=== PATIENT | male | born 1945 | race Caucasian/White ===

== ENCOUNTER 2023-04-08 09:04 | Observation (INO) | payer OTHER ==
[~2023-04-08] VITALS: Ht 175.3 cm; Wt 102.5 kg
[~2023-04-08 09:04] MED LIST: AMLO5 PO; ATOR40TA PO; BACL20 PO; Carvedilol12.5 MG PO; HYDCHL25 PO; LAVAP17G PO; LEVSOD100 PO; LISI20 PO; MOMENI; Norco 5-325 Ta1 EACH PO; POTCHL10ER PO
[2023-04-08 09:25] LABS: BASOPHILS ABSOLUTE AUTO 0.04 K/mm3 (0.00-0.23); BASOPHILS PERCENT AUTO 0 % (0-2); EOSINOPHILS ABSOLUTE AUTO 0.29 K/mm3 (0.00-0.68); EOSINOPHILS PERCENT AUTO 3 % (0-6); Hematocrit 41.2 % (37.0-53.0); Hemoglobin 13.9 g/dL (13.5-17.5); IMMATURE GRAN ABSOLUTE AUTO 0.02 K/mm3 (0.00-0.10); IMMATURE GRAN PERCENT AUTO 0 % (0-1); LYMPHOCYTES ABSOLUTE AUTO 1.75 K/mm3 (0.84-5.20); LYMPHOCYTES PERCENT AUTO 17 % (21-46); MONOCYTES ABSOLUTE AUTO 1.21 K/mm3 (0.16-1.47); MONOCYTES PERCENT AUTO 12 % (4-13); Mean Corpuscular HGB Conc 33.7 g/dL (31.5-36.5); Mean Corpuscular Volume 89 fL (80-100); Mean Platelet Volume 9.9 fL (9.1-12.4); NEUTROPHILS ABSOLUTE AUTO 6.84 K/mm3 (1.96-9.15); NEUTROPHILS PERCENT AUTO 67 % (41-73); Platelet Count 234 K/mm3 (150-400); RDW Coefficient Variation 14.3 % (11.7-14.2); RDW Standard Deviation 46.2 fL (35.1-46.3); Red Blood Cell Count 4.63 M/mm3 (4.30-5.90); White Blood Cell Count 10.15 K/mm3 (4.00-11.30)
[2023-04-08 09:46] LABS: Albumin, Blood 3.7 g/dL (3.4-5.0); Albumin/Globulin Ratio 1.1 (0.8-1.8); Bun/Creatinine Ratio 15.6 (12.0-20.0); Calcium, Blood 8.9 mg/dL (8.5-10.1); Creatinine, Blood 0.96 mg/dL (0.60-1.20); Globulin, Blood 3.5 g/dL (2.2-4.0); Total Protein, Blood 7.2 g/dL (6.4-8.2)
[2023-04-08 10:28] LABS: Influenza A, PCR NEGATIVE (NEGATIVE); Influenza B, PCR NEGATIVE (NEGATIVE); Resp Syncytial Virus, PCR NEGATIVE (NEGATIVE); SARS-Cov-2 (COVID-19) PCR, MMC NEGATIVE (NEGATIVE)
[2023-04-08] MEDS ORDERED: PREG150 PO (10:41)
[2023-04-08] MEDS ORDERED: TRAM50 PO (10:42)
[2023-04-08] MEDS ORDERED: PANT40 PO (10:42)
[2023-04-08 14:28] VITALS: BP 159/88
[2023-04-08 14:30] VITALS: BP 149/85
[2023-04-08 16:05] VITALS: BP 140/80
--- NOTE | 2023-04-08 17:37 | NUR ---
PT ARRIVED IN THE UNIT VIA GURNEY PT ABLE TO STAND AND AMBULATE TO TRANSFER TO PCU BED. PT ALERT AND ORIENTED X3 ABLE TO MAKE NEEDS KNOWN, [place] HAS HEARING AID IN PLACE. PT IS HERE FOR CHEST PAIN, PT DENIES ANY CHEST PAIN UPON ARRIVAL DOES HAVE SOB WITH EXERTION AND LAYING FLAT IN BED, LUNGS WITH CRACKLES ON THE BASES. PT C/O BACK PAIN 03/25 FROM LAYING ON BACK MEDICATED WITH TYLENOL. VITALS SR PVC'S BBB 80'S, SBP 140, SATS ABOVE 90% ON RA, AFEBRILE. PT FOR ONE DAY PROTOCOL STRESS TEST IN AM, NPO AT MIDNIGHT AND NO CAFFERINE AFTER 7PM, PT WAS INSTRUCTED AND EDUCATED PT VERBALIZED UNDERSTANDING. PT ALSO STARTED ON LASIX PO. AWAITING FOR ECHO RESULTS. PT HAS BEEN AMBULATING TO THE BATHROOM SBA NO ISSUES. WILL CONTINUE TO MONITOR UNTIL END OF SHIFT
[2023-04-08 20:28] VITALS: BP 128/74
[2023-04-08 23:07] VITALS: BP 105/59
[2023-04-09 03:41] VITALS: BP 125/64
[2023-04-09 03:55] LABS: BASOPHILS ABSOLUTE AUTO 0.04 K/mm3 (0.00-0.23); BASOPHILS PERCENT AUTO 1 % (0-2); EOSINOPHILS ABSOLUTE AUTO 0.25 K/mm3 (0.00-0.68); EOSINOPHILS PERCENT AUTO 3 % (0-6); Hematocrit 38.9 % (37.0-53.0); Hemoglobin 13.1 g/dL (13.5-17.5); IMMATURE GRAN ABSOLUTE AUTO 0.01 K/mm3 (0.00-0.10); IMMATURE GRAN PERCENT AUTO 0 % (0-1); LYMPHOCYTES ABSOLUTE AUTO 2.04 K/mm3 (0.84-5.20); LYMPHOCYTES PERCENT AUTO 25 % (21-46); MONOCYTES ABSOLUTE AUTO 0.88 K/mm3 (0.16-1.47); MONOCYTES PERCENT AUTO 11 % (4-13); Mean Corpuscular HGB 29.4 pg (26.0-34.0); Mean Corpuscular HGB Conc 33.7 g/dL (31.5-36.5); Mean Corpuscular Volume 87 fL (80-100); Mean Platelet Volume 9.9 fL (9.1-12.4); NEUTROPHILS ABSOLUTE AUTO 4.96 K/mm3 (1.96-9.15); NEUTROPHILS PERCENT AUTO 61 % (41-73); Platelet Count 211 K/mm3 (150-400); RDW Coefficient Variation 14.1 % (11.7-14.2); RDW Standard Deviation 45.1 fL (35.1-46.3); Red Blood Cell Count 4.45 M/mm3 (4.30-5.90); White Blood Cell Count 8.18 K/mm3 (4.00-11.30)
[2023-04-09 04:12] LABS: Bun/Creatinine Ratio 17.1 (12.0-20.0); Calcium, Blood 8.4 mg/dL (8.5-10.1); Creatinine, Blood 0.82 mg/dL (0.60-1.20); Potassium, Blood 3.3 mmol/L (3.5-5.5)
--- NOTE | 2023-04-09 05:49 | NUR ---
SHIFT SUMMARY PATIENT ALERT AND ORIENTED X4. MEDICATED PER EMAR FOR BACK PAIN. HAD NO COMPLAINTS OF SHORTNESS OF BREATH, SPO2 90'S ON ROOM AIR. VITAL SIGNS STABLE. NO ACUTE ISSUES NOTED OVERNIGHT. PATIENT ASSESSED FOR IGNITION RISK AND EDUCATED ON FIRE SAFETY IN THE HOSPITAL. WILL CONTINUE TO MONITOR. CALL LIGHT WITHIN REACH.
[2023-04-09 06:22] LABS: Magnesium, Blood 2.3 mg/dL (1.6-2.4)
[2023-04-09 08:00] VITALS: BP 129/73
[2023-04-09] MEDS ORDERED: LISI20 PO (14:53)
[2023-04-09] MEDS ORDERED: VITAMIN E180 MG PO (14:56)
[2023-04-09] MEDS ORDERED: Hair, Skin & N1 EACH PO (14:56)
[2023-04-09] MEDS ORDERED: DERMACINRX FOL1 EAC2 PO (14:57)
[2023-04-09 16:29] VITALS: BP 148/82
--- NOTE | 2023-04-09 18:11 | NUR ---
SHIFT SUMMARY PATIENT HAD STRESS TEST COMPLETED TODAY. UP TO CHAIR DURING THE DAY AND AMBULATED TO BATHROOM INDEPENDENTLY. NO ACUTE EVENTS. MEDICATED WITH TYLENOL ONCE PER EMAR FOR BACK PAIN.
[2023-04-09 20:59] VITALS: BP 132/101
[2023-04-09 23:49] VITALS: BP 123/75
[2023-04-10 03:54] VITALS: BP 126/83
[2023-04-10 04:06] LABS: Hematocrit 40.4 % (37.0-53.0); Hemoglobin 13.7 g/dL (13.5-17.5); Mean Corpuscular HGB 29.6 pg (26.0-34.0); Mean Corpuscular HGB Conc 33.9 g/dL (31.5-36.5); Mean Corpuscular Volume 87 fL (80-100); Mean Platelet Volume 9.8 fL (9.1-12.4); Platelet Count 221 K/mm3 (150-400); RDW Coefficient Variation 13.9 % (11.7-14.2); RDW Standard Deviation 44.3 fL (35.1-46.3); Red Blood Cell Count 4.63 M/mm3 (4.30-5.90); White Blood Cell Count 6.34 K/mm3 (4.00-11.30)
[2023-04-10 04:22] LABS: Bun/Creatinine Ratio 21.2 (12.0-20.0); Calcium, Blood 8.3 mg/dL (8.5-10.1); Creatinine, Blood 0.71 mg/dL (0.60-1.20); Potassium, Blood 3.5 mmol/L (3.5-5.5)
--- NOTE | 2023-04-10 06:08 | NUR ---
SHIFT SUMMARY PATIENT ALERT AND ORIENTED X4, INDEPENDENT IN ROOM. PATIENT MEDICATED PER EMAR FOR BACK PAIN. SPO2 >90% ON ROOM AIR. NO COMPLAINTS OF CHEST PAIN OR SHORTNESS OF BREATH. VITAL SIGNS STABLE, SINUS RHYTHM WITH PVC'S ON TELE. NO ACUTE ISSUES NOTED OVERNIGHT. PATIENT ASSESSED FOR IGNITION RISK AND EDUCATED ON FIRE SAFETY IN THE HOSPITAL. WILL CONTINUE TO MONITOR. CALL LIGHT WITHIN REACH.
[2023-04-10 08:00] VITALS: BP 152/88
--- NOTE | 2023-04-10 09:50 | NUR ---
IGNITION RISK ASSESSMENT PT ASSESSED FOR SMOKING AND OTHER IGINTION RISK DEVICES, NONE REPORTED. PT REMINDED THAT [facility] IS A SMOKE FREE FACILITY AND THAT ANY VISITORS NEED TO LEAVE IGNITION RISK DEVICES IN THEIR VEHICLE. PT AGREED.
[2023-04-10] MEDS ORDERED: ASPI81CH PO (10:59)
[2023-04-10] MEDS ORDERED: FURO40 PO (11:00)
--- NOTE | 2023-04-10 11:07 | NUR ---
PT SISTER IN-LAW UPDATED PER PT REQUEST.
[2023-04-10 11:38] VITALS: BP 128/79
--- NOTE | 2023-04-10 13:40 | NUR ---
REPORT GIVEN TO DIANA DEVI. DIANA TO ASSUME CARE.
--- NOTE | 2023-04-10 14:04 | NUR ---
Spiritual care visit conducted. Patient was lying in bed and alert. He told me about his divorce and then his move to [place] 10 yrs ago to be near his brother. His brother 5yrs ago and so his [place] are the only family in the area. 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 He then shares about his recent heart event and the plans to treat the issues with medication. He explains about his [employer] [place] [facility] and how dispite the problems he saw in the rastafari he has maintained a practicing Church. 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 I normalize his experience, reinforce helpful attitudes and provide therapeutic listening and pryaer. Patient responded well and voiced that he was very encourged by the spiritual care visit.
--- NOTE | 2023-04-10 14:36 | NUR ---
ASSUMED CARE AT 1300 ALERT, ORIENTED, [place]. INDEPENDENT WITH CANE IN ROOM. ROOM AIR, TELE NSR, PVC'S, BBB. IV DC'D WNL. DISCHARGE EDUCATION GIVEN ON NEW MEDS AND FOLLOW UP WITH PCP. PATIENT DRESSED HIMSELF AND LEFT UNIT AT 1430 VIA WHEELCHAIR FOR HOME WITH SISTER IN LAW.
== END 2023-04-10 14:29 | disposition home or self-care (01) ==
LOC: ER 09:04 → PCU 09:05
PROVIDERS: Emergency Medicine; Family Medicine; Student in an Organized Health Care Education/Training Program; ADMIT Hospitalist
DX: R07.9 Chest pain, unspecified (principal); I44.7 Left bundle-branch block, unspecified; I50.9 Heart failure, unspecified; E03.9 Hypothyroidism, unspecified; I11.0 Hypertensive heart disease with heart failure; K21.9 Gastro-esophageal reflux disease without esophagitis; K59.00 Constipation, unspecified; Z66 Do not resuscitate; Z20.822 Contact with and (suspected) exposure to COVID-19
CPT/HCPCS: 0241U; 36415; 71045; 78452; 80048; 80053; 83690; 83735; 83880; 84484; 85025; 85027; 93005; 93010; 93017; 93306; 96372; 99285-25; A9270; A9500; G0378; J1650; J2785

== ENCOUNTER 2023-07-02 11:10 | Inpatient (IN) | payer OTHER ==
[~2023-07-02] VITALS: Ht 175.3 cm; Wt 109.4 kg
[~2023-07-02 11:10] MED LIST changes: +ASPI81CH PO; +DERMACINRX FOL1 EAC2 PO; +FURO40 PO; +Hair, Skin & N1 EACH PO; +PANT40 PO; +PREG150 PO; +TRAM50 PO; +VITAMIN E180 MG PO
[2023-07-02 12:15] LABS: BASOPHILS ABSOLUTE AUTO 0.04 K/mm3 (0.00-0.23); BASOPHILS PERCENT AUTO 1 % (0-2); EOSINOPHILS ABSOLUTE AUTO 0.41 K/mm3 (0.00-0.68); EOSINOPHILS PERCENT AUTO 5 % (0-6); Hematocrit 40.8 % (37.0-53.0); Hemoglobin 13.4 g/dL (13.5-17.5); IMMATURE GRAN ABSOLUTE AUTO 0.01 K/mm3 (0.00-0.10); IMMATURE GRAN PERCENT AUTO 0 % (0-1); LYMPHOCYTES ABSOLUTE AUTO 1.93 K/mm3 (0.84-5.20); LYMPHOCYTES PERCENT AUTO 25 % (21-46); MONOCYTES PERCENT AUTO 8 % (4-13); Mean Corpuscular HGB 29.7 pg (26.0-34.0); Mean Corpuscular HGB Conc 32.8 g/dL (31.5-36.5); Mean Corpuscular Volume 91 fL (80-100); Mean Platelet Volume 10.1 fL (9.1-12.4); NEUTROPHILS ABSOLUTE AUTO 4.88 K/mm3 (1.96-9.15); NEUTROPHILS PERCENT AUTO 62 % (41-73); Platelet Count 243 K/mm3 (150-400); RDW Coefficient Variation 14.8 % (11.7-14.2); RDW Standard Deviation 49.5 fL (35.1-46.3); Red Blood Cell Count 4.51 M/mm3 (4.30-5.90); White Blood Cell Count 7.87 K/mm3 (4.00-11.30)
[2023-07-02 12:35] LABS: Albumin/Globulin Ratio 0.5 (0.8-1.8); Bilirubin, Total 0.3 mg/dL (0.1-1.0); Bun/Creatinine Ratio 24.8 (12.0-20.0); Calcium, Blood 7.9 mg/dL (8.5-10.1); Creatinine, Blood 1.29 mg/dL (0.60-1.20); Globulin, Blood 3.6 g/dL (2.2-4.0); Potassium, Blood 4.8 mmol/L (3.5-5.5); Total Protein, Blood 5.4 g/dL (6.4-8.2)
[2023-07-02 12:39] LABS: Albumin, Blood 1.8 g/dL (3.4-5.0)
[2023-07-02] MEDS ORDERED: SPIR25 PO (16:01)
[2023-07-02] MEDS ORDERED: ALBU90OI INH (16:02)
[2023-07-02] MEDS ORDERED: PANT40 PO (16:03)
[2023-07-02] MEDS ORDERED: ENTRESTO 49 MG1 EACH PO (16:04)
[2023-07-02] MEDS ORDERED: EPIPEN0.3 MG/0.3 IM (16:06)
[2023-07-02 16:38] VITALS: BP 140/86
--- NOTE | 2023-07-02 18:50 | NUR ---
PT UPDATE TELE NOTIFIED JOHN DEVI OF [facility]. PT ASYMPTOMATIC. NOTIFIFED , PER EKG PERFORMED. NOTIFIED OF RESULTS. NO INTERVENTIONS NEEDED AT THIS TIME.
[2023-07-02 19:10] VITALS: BP 141/70
[2023-07-03 03:27] VITALS: BP 123/79
[2023-07-03 04:56] LABS: BASOPHILS ABSOLUTE AUTO 0.04 K/mm3 (0.00-0.23); BASOPHILS PERCENT AUTO 1 % (0-2); EOSINOPHILS ABSOLUTE AUTO 0.22 K/mm3 (0.00-0.68); EOSINOPHILS PERCENT AUTO 3 % (0-6); Hemoglobin 13.1 g/dL (13.5-17.5); IMMATURE GRAN ABSOLUTE AUTO 0.02 K/mm3 (0.00-0.10); IMMATURE GRAN PERCENT AUTO 0 % (0-1); LYMPHOCYTES ABSOLUTE AUTO 1.55 K/mm3 (0.84-5.20); LYMPHOCYTES PERCENT AUTO 19 % (21-46); MONOCYTES ABSOLUTE AUTO 0.62 K/mm3 (0.16-1.47); MONOCYTES PERCENT AUTO 8 % (4-13); Mean Corpuscular HGB 30.6 pg (26.0-34.0); Mean Corpuscular HGB Conc 34.5 g/dL (31.5-36.5); Mean Corpuscular Volume 89 fL (80-100); Mean Platelet Volume 10.3 fL (9.1-12.4); NEUTROPHILS PERCENT AUTO 70 % (41-73); Platelet Count 245 K/mm3 (150-400); RDW Coefficient Variation 14.8 % (11.7-14.2); RDW Standard Deviation 47.8 fL (35.1-46.3); Red Blood Cell Count 4.28 M/mm3 (4.30-5.90); White Blood Cell Count 8.25 K/mm3 (4.00-11.30)
[2023-07-03 05:29] LABS: Bun/Creatinine Ratio 24.8 (12.0-20.0); Calcium, Blood 8.1 mg/dL (8.5-10.1); Creatinine, Blood 1.41 mg/dL (0.60-1.20); Potassium, Blood 4.3 mmol/L (3.5-5.5)
--- NOTE | 2023-07-03 06:15 | NUR ---
Shift Summary Upon arrival I was told in report pt was having ST changes on the heart monitor but the EKG was unchanged and the is aware. I recieved a call early in the shift that pt was having more ST change alerts than previously in the day. No change in pt condition, no c/o chest pain or pressure, no light headedness or dizzyness. Pt did c/o of lower back pain and requested his home medication Tramadol, called hospitalist who put in the order. Pt slept well t/o the night, woke up this AM with a headache, rcvind PRN tylenol. AOx4, moves independently in the room with his cane, very [place] even with hearing aids in.
[2023-07-03 08:01] VITALS: BP 140/80
[2023-07-03 15:25] VITALS: BP 149/80
--- NOTE | 2023-07-03 17:30 | NUR ---
SHIFT SUMMARY PATIENT CONTINUES TO HAVE SOB WITH ACTIVITY. PATIENT CONTINUES TO DISCUSS THAT HE NEEDS A 3 LEAD PACEMAKER AND CONCERNED HOW THAT IS GOING TO HAPPEN. IV DC'D AND NEW ONE PLACED IN L AC. PATIENT CONTINUES TO BE GIVEN IV DIURETICS ALONG WITH PO. PATIENT MEDICATED FOR PAIN THROUGHOUT THE DAY. PATIENT ALERT, INTERACTIVE AND ABLE TO AMBULATE IN THE ROOM
[2023-07-03 20:59] VITALS: BP 137/72
[2023-07-04 04:48] VITALS: BP 129/66
--- NOTE | 2023-07-04 04:58 | NUR ---
SHIFT SUMMARY; NO ACUTE CHANGES OVER NIGHT. THE PT IS AXO X4 AND INDEPENDENT IN THE ROOM. THE PT HAS BEEN ASLEEP THE ENTIRETY OF THE NIGHT. TELE IS IN PLACE, SINUS IN THE 70'S W/ A BBB. THE PT DENIES ANY SOB, CHEST PAIN/PRESSURE OR N/V. CURRENTLY THE PT IS SLEEPING IN BED WITH THE BED IN THE LOWEST POSITION AND THE CALL LIGHT AT BEDSIDE. FIRE ROUNDS COMPLETED.
[2023-07-04 05:57] LABS: Bun/Creatinine Ratio 25.2 (12.0-20.0); Calcium, Blood 7.8 mg/dL (8.5-10.1); Creatinine, Blood 1.55 mg/dL (0.60-1.20); Potassium, Blood 3.9 mmol/L (3.5-5.5)
[2023-07-04 07:31] VITALS: BP 136/72
[2023-07-04 16:13] VITALS: BP 126/73
--- NOTE | 2023-07-04 16:51 | NUR ---
SHIFT SUMMARY PATIENT CONTINUES TO BE DIURESED. PATIENT TO SEE CARDIOLOGY OUTPATIENT RELATED TO 3 LEAD PACEMAKER. PATIENT ALERT, ORIENTED, [place], AND INDEPENDENT IN THE ROOM. PATIENT HAVING ISSUES WITH BACK SPASMS. PATIENT HAS HX OF BACK SURGERY. PATIENT GIVEN HEATING PAD TO HELP WITH SPASMS. PATIENT REPORTS IMPROVEMENT. CONTINUE TO PROVIDE EDUCATION RELATED TO DIET, FLUIDS AND DIURESIS.
[2023-07-04 20:04] VITALS: BP 121/66
[2023-07-05 04:15] VITALS: BP 130/78
--- NOTE | 2023-07-05 04:52 | NUR ---
SHIFT SUMMARY; NO ACUTE CHANGES OVERNIGHT. THE PT HAS BEEN SLEEPING IN BED FOR THE ENTIRETY OF THE NIGHT. THE PT IS AXO X4 AND INDEPENDENT IN THE ROOM. THE PT REQUESTED PRN PAIN MEDICATION THIS AM FOR BACK PAIN BUT HAS OTHERWISE DENIED ANY OTHER PAIN T/O THE NIGHT. THE PT ALSO DENIES ANY SOB, CHEST PAIN/PRESSURE AND OR N/V. CURRENTLY THE PT IS SLEEPING IN BED WITH THE BED IN THE LOWEST POSITION AND THE CALL LIGHT AT BEDSIDE. FIRE SAFETY ROUNDS COMPLETED.
[2023-07-05 05:19] LABS: Bun/Creatinine Ratio 31.9 (12.0-20.0); Calcium, Blood 7.9 mg/dL (8.5-10.1); Creatinine, Blood 1.35 mg/dL (0.60-1.20); Potassium, Blood 3.4 mmol/L (3.5-5.5)
[2023-07-05 07:54] VITALS: BP 143/66
[2023-07-05 14:43] VITALS: BP 118/82
--- NOTE | 2023-07-05 16:55 | NUR ---
SHIFT SUMMARY PATIENT CONTINUES TO BE DIURESED. CARDIOLOGY SPOKE TO PATIENT ABOUT PACEMAKER PLACEMENT. DR LICONA TO CONSULT FOR PLACEMENT. PATIENT CONTINUES TO HAVE LOWER BACK SPASMS. PATIENT MEDICATED WITH MUSCLE RELAXER WITH GOOD RESULTS. PATIENT CONTINUES TO BE INDEPENDENT IN THE ROOM. PATIENT VERY HARD OF HEARING EVEN WITH HEARING AIDS IN PLACE. DR LICONA CONSULTED AND STATED THAT PACEMAKER WILL BE EVALUATED AN OUTPATIENT. MULTIPLE STEPS TO BE COMPLETED PRIOR TO PACER PLACEMENT.
[2023-07-05 19:54] VITALS: BP 124/73
[2023-07-06 05:12] VITALS: BP 130/69
--- NOTE | 2023-07-06 05:32 | NUR ---
SHIFT SUMMARY OMA IS A&OX4, PLEASANT AND APPRECIATIVE. VERY [place], HAS BILATERAL HEARING AIDES. VSS, 1ST DEGREE BBB, HR 70'S-80'S, AFEBRILE, O2 SATS >90% ON RA. CONTINUES TO DIURESE. C/O PAIN IN HIS BACK, MANAGED WITH PRN TRAMADOL, TYLENOL AND ZANAFLEX. ALSO USES HEAT PAD. TOLERATES A HEART HEALTHY DIET. UP AD BRISA INDEPENDENTLY IN ROOM/BR, ADEQUATE UOP. NO BM THIS SHIFT. PATIENTS BED IN LOWEST POSITION, CANE IN REACH, CALLS APPROPRIATELY.
[2023-07-06 07:41] VITALS: BP 136/80
[2023-07-06 08:53] LABS: Albumin, Blood 1.6 g/dL (3.4-5.0); Anion Gap 6 mmol/L (6-16); Blood Urea Nitrogen 46 mg/dL (8-24); Bun/Creatinine Ratio 35.4 (12.0-20.0); CO2, Blood 32 mmol/L (21-32); Calcium, Blood 8.1 mg/dL (8.5-10.1); Chloride, Blood 100 mmol/L (98-108); Glomerular Filtration Rate 56 (60-); Glucose, Blood 92 mg/dL (70-99); Phosphorus, Blood 3.8 mg/dL (2.5-4.9); Potassium, Blood 3.2 mmol/L (3.5-5.5); Sodium, Blood 138 mmol/L (136-145)
[2023-07-06 15:14] VITALS: BP 129/65
--- NOTE | 2023-07-06 19:20 | NUR ---
SHIFT SUMMARY: NO ACUTE EVENTS. NO EVENTS ON TELEMETRY, SR BBB 1ST DEGREE HB PVC'S WITH RATE OF 60-70'S. C/O CHRONIC BACK PAIN; MEDICATED PER EMAR WITH ADEQUATE RELIEF. AMBULATED IN HALLWAY X 1, TOLERATED WELL. BLE ELEVATED ON PILLOWS AND FOOT OF BED ELEVATED ALL THE WAY UP. PHYSICAL THERAPY WORKED WITH PATIENT THIS MORNING.
[2023-07-06 20:17] VITALS: BP 121/80
[2023-07-07 02:18] VITALS: BP 137/77
--- NOTE | 2023-07-07 04:48 | NUR ---
SHIFT SUMMARY NOC PT A/O X 4. PLEASANT AND COOPERATIVE WITH CARE. DAILY WT AND STRICT I/O FOR DIURESING. NO ACUTE CHANGES TO REPORT. PT RECEIVED PAIN/MUSCLE RELAXER RX WITH BEDTIME MEDS. PT BLE ARE ELEVATED ON PILLOWS. PT ON TELE RUNNING SINUS RHYTHM @ 66 BPM. PT REPORTS ANXIETY AND HAS QUESTIONS ABOUT UPCOMING PROCESS FOR PACEMAKER PLACEMENT. PT HAS CONSULT WITH [employer] ON SATURDAY TO DISCUSS PLAN GOING FORWARD FOR PM PLACEMENT. PT IS CURRENTLY RESTING WITH BED IN LOWEST POSITION, AND CALL LIGHT WITHIN REACH.
[2023-07-07 07:24] VITALS: BP 139/82
[2023-07-07 08:11] LABS: Albumin, Blood 1.5 g/dL (3.4-5.0); Anion Gap 6 mmol/L (6-16); Blood Urea Nitrogen 49 mg/dL (8-24); Bun/Creatinine Ratio 39.8 (12.0-20.0); CO2, Blood 30 mmol/L (21-32); Calcium, Blood 7.8 mg/dL (8.5-10.1); Chloride, Blood 98 mmol/L (98-108); Creatinine, Blood 1.23 mg/dL (0.60-1.20); Glomerular Filtration Rate 59 (60-); Glucose, Blood 96 mg/dL (70-99); Phosphorus, Blood 3.6 mg/dL (2.5-4.9); Potassium, Blood 3.1 mmol/L (3.5-5.5); Sodium, Blood 134 mmol/L (136-145)
[2023-07-07 14:59] VITALS: BP 140/91
--- NOTE | 2023-07-07 18:55 | NUR ---
SHIFT SUMMARY: RECEIVED SECOND CALL FROM [facility] SHIFT WOOD WEB WEAVING MACHINE OPERATOR WHO STATED THAT PT'S HEART RHYTHM APPEARED TO HAVE CHANGES IN ST ELEVATION. INFORMED HER THAT PREVIOUS TECH HAD ALREADY REPORTED THIS. DR. ESTRADA HAD BEEN NOTIFIED AND 12 LEAD EKG DONE AND GIVEN TO HER FOR HER EVALUATION; NO NEW ORDERS PLACED. PT DENIES CHEST DISCOMFORT, SOB, DIZZINESS, NAUSEA. POTASSIUM REPLACED AND EXTRA BUMEX 2 MG DOSE GIVEN THIS AFTERNOON. BUE EDEMA APPEARS A BIT REDUCED. IS ELEVATING BLE WELL HIS CHRONIC BACK PAIN WILL ALLOW. MEDICATED FOR SAID PAIN PER EMAR. GOOD APPETITE.
[2023-07-07 19:49] VITALS: BP 123/70
[2023-07-08 04:15] VITALS: BP 125/77
[2023-07-08 05:22] LABS: Albumin, Blood 1.5 g/dL (3.4-5.0); Anion Gap 6 mmol/L (6-16); Blood Urea Nitrogen 48 mg/dL (8-24); Bun/Creatinine Ratio 39.3 (12.0-20.0); CO2, Blood 34 mmol/L (21-32); Calcium, Blood 7.8 mg/dL (8.5-10.1); Chloride, Blood 98 mmol/L (98-108); Creatinine, Blood 1.22 mg/dL (0.60-1.20); Glomerular Filtration Rate 60 (60-); Glucose, Blood 93 mg/dL (70-99); Magnesium, Blood 2.2 mg/dL (1.6-2.4); Phosphorus, Blood 3.6 mg/dL (2.5-4.9); Potassium, Blood 3.1 mmol/L (3.5-5.5); Sodium, Blood 138 mmol/L (136-145)
--- NOTE | 2023-07-08 05:33 | NUR ---
SHIFT SUMMARY NOC PT A/O X 4. PLEASANT AND COOPERATIVE WITH CARE. NO ACUTE CHANGES TO REPORT. PT HAD EXTRA DOSES OF BUMEX YESTERDAY AND AWAITING AM DAILY WT TO REEVALUATE INTERVENTION. PT GOT BEDTIME COMBO RX FOR PAIN/MUSCLE RELAXER AND SLEPT FOR MOST OF SHIFT. PT ON TELE RUNNING SINUS RHYTHM BBB @ 70 BPM. PT ELEVATING BLE ON PILLOWS DUE TO EDEMA, WHICH SEEMS TO HAVE DECREASED. PT IS CURRENTLY RESTING WITH BED IN LOWEST POSITION, AND CALL LIGHT WITHIN REACH.
[2023-07-08 07:40] VITALS: BP 146/81
[2023-07-08 16:00] VITALS: BP 132/85
--- NOTE | 2023-07-08 17:32 | NUR ---
NO ACUTE CHANGES AT THIS TIME. PT AOX4 AND HARD OF HEARING. PT INDEPENDENT IN ROOM WILL CONTINUE TO MONITOR.
[2023-07-08 20:03] VITALS: BP 130/89
[2023-07-09 04:37] VITALS: BP 138/75
--- NOTE | 2023-07-09 04:42 | NUR ---
SHIFT SUMMARY PT A&O X4, CALM AND COOPERATIVE WITH CARE. PT DIURESING. STRICT I&Os MAINTAINED AND FLUID RESTRICTION. TELEMETRY: SR W/PVC's @ 86. DENIES ANY CP OR PRESSURE AT THIS TIME. PT IS [place] BUT HAS HEARING AIDS. CONTINENT AND INDEPENDENT IN ROOM. CALLS APPROPRIATELY. BED KEPT IN LOWEST POSITION WITH CALL LIGHT WITHIN REACH. WILL CONTINUE TO MONITOR.
[2023-07-09 05:37] LABS: Albumin, Blood 1.5 g/dL (3.4-5.0); Anion Gap 5 mmol/L (6-16); Blood Urea Nitrogen 48 mg/dL (8-24); Bun/Creatinine Ratio 36.1 (12.0-20.0); CO2, Blood 34 mmol/L (21-32); Chloride, Blood 98 mmol/L (98-108); Creatinine, Blood 1.33 mg/dL (0.60-1.20); Glomerular Filtration Rate 54 (60-); Glucose, Blood 93 mg/dL (70-99); Phosphorus, Blood 3.5 mg/dL (2.5-4.9); Potassium, Blood 3.5 mmol/L (3.5-5.5); Sodium, Blood 137 mmol/L (136-145)
[2023-07-09 07:12] VITALS: BP 125/84
[2023-07-09] MEDS ORDERED: ENTRESTO 49 MG1 EAC2 PO (14:00)
[2023-07-09] MEDS ORDERED: METO5 PO (14:01)
[2023-07-09] MEDS ORDERED: MOME220I INH (14:02)
[2023-07-09] MEDS ORDERED: POTCHL20ER PO (14:03)
[2023-07-09] MEDS ORDERED: MIRALAX17 GM PO (14:03)
[2023-07-09] MEDS ORDERED: TIZA4 PO (14:04)
[2023-07-09] MEDS ORDERED: Bumetanide2 MG PO (14:05)
--- NOTE | 2023-07-09 15:04 | NUR ---
PT AOX4 AND COOPERATIVE OF CARE, DISCHARGE AT 1455. ALL PAPERWORK REVIEWED AND EDUCATIONAL MATERIAL SENT WITH PT. NO DISTRESS NOTED. FRIENDT TRANSPORT HOME. ALL PERSONAL BELONGING COLLECTED AND TAKEN WITH PT.
== END 2023-07-09 14:55 | disposition home or self-care (01) | DRG 280 ==
LOC: ER 11:10 → MEDS 14:40
PROVIDERS: Internal Medicine; Student in an Organized Health Care Education/Training Program; ADMIT Family Medicine
DX: I11.0 Hypertensive heart disease with heart failure (principal); I50.23 Acute on chronic systolic (congestive) heart failure; I21.A1 Myocardial infarction type 2; E87.1 Hypo-osmolality and hyponatremia; N17.9 Acute kidney failure, unspecified; I44.7 Left bundle-branch block, unspecified; E03.9 Hypothyroidism, unspecified; Z66 Do not resuscitate; E87.6 Hypokalemia; G89.29 Other chronic pain; E78.5 Hyperlipidemia, unspecified; K21.9 Gastro-esophageal reflux disease without esophagitis; I08.0 Rheumatic disorders of both mitral and aortic valves; R63.4 Abnormal weight loss; I25.10 Atherosclerotic heart disease of native coronary artery without angina pectoris; I44.1 Atrioventricular block, second degree; D64.9 Anemia, unspecified; E66.9 Obesity, unspecified; Z88.0 Allergy status to penicillin; Z91.038 Other insect allergy status; Z88.2 Allergy status to sulfonamides; Z68.37 Body mass index [BMI] 37.0-37.9, adult; Z88.5 Allergy status to narcotic agent; Z91.018 Allergy to other foods; Z79.899 Other long term (current) drug therapy; Z79.890 Hormone replacement therapy; Z79.891 Long term (current) use of opiate analgesic; Z79.51 Long term (current) use of inhaled steroids; Z79.82 Long term (current) use of aspirin; Z79.01 Long term (current) use of anticoagulants; Z60.2 Problems related to living alone
CPT/HCPCS: 36415; 71046; 80048; 80053; 80069; 83735; 83880; 84484; 85025; 93005; 93010; 94640; 94664; 94760; 97116; 97161; 97166; 97530; 99285-25; A9270; J1650; J2405

== ENCOUNTER 2023-07-24 08:58 | Day surgery (SDC) | payer OTHER ==
[2023-07-24] VITALS (10 sets, daily range): BP systolic 111–152; BP diastolic 56–110
[~2023-07-24] VITALS: Ht 175.3 cm; Wt 110.0 kg
[~2023-07-24 08:58] MED LIST changes: +ALBU90OI INH; +Bumetanide2 MG PO; +ENTRESTO 49 MG1 EAC2 PO; +ENTRESTO 49 MG1 EACH PO; +EPIPEN0.3 MG/0.3 IM; +METO5 PO; +MIRALAX17 GM PO; +MOME220I INH; +POTCHL20ER PO; +SPIR25 PO; +TIZA4 PO
[2023-07-24] MEDS ORDERED: ALDACTONE25 MG PO (09:33)
--- NOTE | 2023-07-24 13:00 | NUR ---
PT DRESSES SELF WITHOUT DIFF. VSS. NADN. PT TR BAND REMOVED FROM R RADIAL. NO BLEEDING OR HEMATOMA NOTED. SPLINT IN PLACE. PT VERBALIZES UNDERSTANDING WRITTEN AND VERBAL INSTRUCTIONS. DENIES QUESTIONS. PT IV DC'D. CATH INTACT. PRESSURE DSG APPLIED. PT DC TO HOME VIA WC BY FRIEND.
== END 2023-07-24 13:05 | disposition home or self-care (01) ==
LOC: MHTC 08:58
DX: I42.8 Other cardiomyopathies (principal); I11.0 Hypertensive heart disease with heart failure; I50.20 Unspecified systolic (congestive) heart failure; I25.10 Atherosclerotic heart disease of native coronary artery without angina pectoris; I25.2 Old myocardial infarction; I44.7 Left bundle-branch block, unspecified; I08.0 Rheumatic disorders of both mitral and aortic valves; E78.5 Hyperlipidemia, unspecified; E03.9 Hypothyroidism, unspecified; K21.9 Gastro-esophageal reflux disease without esophagitis; Z87.891 Personal history of nicotine dependence; Z88.5 Allergy status to narcotic agent; Z88.0 Allergy status to penicillin; Z88.2 Allergy status to sulfonamides; Z88.8 Allergy status to other drugs, medicaments and biological substances; Z79.82 Long term (current) use of aspirin; Z79.890 Hormone replacement therapy; Z79.899 Other long term (current) drug therapy
CPT/HCPCS: 76937; 93454; 99152; A9270; C1769; C1887; C1894; J1644; J2250; J3010; J7030; J7050; Q9967

== ENCOUNTER 2024-12-17 23:23 | Observation (INO) | payer OTHER ==
[~2024-12-17] VITALS: Ht 175.3 cm; Wt 103.7 kg
[~2024-12-17 23:23] MED LIST changes: +ALDACTONE25 MG PO
[2024-12-18] VITALS (7 sets, daily range): BP systolic 98–112; BP diastolic 69–79
[2024-12-18 00:47] LABS: BASOPHILS ABSOLUTE AUTO 0.05 K/mm3 (0.00-0.23); BASOPHILS PERCENT AUTO 1 % (0-2); EOSINOPHILS ABSOLUTE AUTO 0.29 K/mm3 (0.00-0.68); EOSINOPHILS PERCENT AUTO 3 % (0-6); Hematocrit 41.6 % (37.0-53.0); Hemoglobin 13.8 g/dL (13.5-17.5); IMMATURE GRAN ABSOLUTE AUTO 0.01 K/mm3 (0.00-0.10); IMMATURE GRAN PERCENT AUTO 0 % (0-1); LYMPHOCYTES ABSOLUTE AUTO 2.21 K/mm3 (0.84-5.20); LYMPHOCYTES PERCENT AUTO 25 % (21-46); MONOCYTES ABSOLUTE AUTO 0.72 K/mm3 (0.16-1.47); MONOCYTES PERCENT AUTO 8 % (4-13); Mean Corpuscular HGB 30.3 pg (26.0-34.0); Mean Corpuscular HGB Conc 33.2 g/dL (31.5-36.5); Mean Corpuscular Volume 91 fL (80-100); Mean Platelet Volume 11.3 fL (9.1-12.4); NEUTROPHILS ABSOLUTE AUTO 5.64 K/mm3 (1.96-9.15); NEUTROPHILS PERCENT AUTO 63 % (41-73); Platelet Count 201 K/mm3 (150-400); RDW Coefficient Variation 15.6 % (11.7-14.2); RDW Standard Deviation 51.9 fL (35.1-46.3); Red Blood Cell Count 4.55 M/mm3 (4.30-5.90); White Blood Cell Count 8.92 K/mm3 (4.00-11.30)
[2024-12-18 01:06] LABS: Albumin, Blood 3.6 g/dL (3.4-5.0); Albumin/Globulin Ratio 1.2 (0.8-1.8); Bilirubin, Total 0.8 mg/dL (0.1-1.0); Bun/Creatinine Ratio 22.8 (12.0-20.0); Calcium, Blood 8.5 mg/dL (8.5-10.1); Creatinine, Blood 1.01 mg/dL (0.60-1.20); Globulin, Blood 2.9 g/dL (2.2-4.0); Potassium, Blood 4.5 mmol/L (3.5-5.5); Total Protein, Blood 6.5 g/dL (6.4-8.2)
[2024-12-18] MEDS ORDERED: Bumetanide 0.25 MG/ML 10ML Vial IV ONE (04:10)
[2024-12-18] MEDS ORDERED: ASPI81CH PO (07:51)
[2024-12-18] MEDS ORDERED: ENTRESTO 97 MG1 EACH PO ×2 (07:52→10:36)
[2024-12-18] MEDS ORDERED: ERYT.5TO BOTHEYES (07:54)
[2024-12-18] MEDS ORDERED: METO5 PO (07:55)
[2024-12-18] MEDS ORDERED: TiZANidine HCl 4 MG Tab PO PRN (08:30)
[2024-12-18] MEDS ORDERED: TraMADol HCl 50 MG Tab PO PRN (08:30)
[2024-12-18] MEDS ORDERED: Albuterol HFA200 ACT/6.7 GM INH INH PRN (08:50)
[2024-12-18] MEDS ORDERED: Potassium Chloride 20 MEQ TabCR PO SCH (09:00)
[2024-12-18] MEDS ORDERED: Levothyroxine Sodium 0.1 MG Tab PO SCH (09:00)
[2024-12-18] MEDS ORDERED: Pregabalin 75 MG Cap PO SCH (09:00)
[2024-12-18] MEDS ORDERED: Atorvastatin 40 MG Tab PO SCH (09:00)
[2024-12-18] MEDS ORDERED: Pantoprazole Sodium 40 MG Tab PO SCH (09:00)
[2024-12-18] MEDS ORDERED: Aspirin 81 MG Chew PO SCH (09:00)
--- NOTE | 2024-12-18 10:59 | NUR ---
ARRIVAL TO UNIT AFTER RECEIVING REPORT FROM ED RN, PATIENT TRANSFERRED TO UNIT VIA AT APPROX 0950. PATIENT ALERT - ABLE TO STAND AND TRANSFER FROM TO BED WITH CANE. STEADY GAIT. PATIENT ALERT AND ORIENTED X4. IS [place] W/ BILATERAL HEARING AIDES IN PLACE. REPORTS BASELINE CANE USE. VSS. SBP 110s. MAP >65. TELEMETRY SHOWING V PACED 101. REPORTS MILD SOB WITH MOBILITY - IMPROVING W/ IV BUMEX ADMINISTRATION PRIOR TO TRANSFER. TRACE EDEMA BLE. ON ROOM AIR, SATs >90%. INDEPENDENT WITH ADLs. COMMUNICATES NEEDS EFFECTIVELY. CALL LIGHT IN REACH.
[2024-12-18] MEDS ORDERED: Bumetanide 0.25 MG/ML 4ML ViaL IV SCH (13:00)
--- NOTE | 2024-12-18 16:54 | NUR ---
SHIFT SUMMARY NO ACUTE CHANGES SINCE ARRIVAL TO UNIT NOTE. PATIENT REMAINS ALERT AND ORIENTED X4. COMMUNICATES NEEDS EFFECTIVELY. VSS. SBP 100s. MAP >65. DENIES CHEST PAIN, PRESSURE. X1 EVENT REPORTED BY TELEMETRY AT APPROX 1540 - POSSIBLE VTACH/TACHYCARDIA W/ RATE INCREASE TO 150. PATIENT ASYMPTOMATIC. NO FURTHER EVENTS REPORTED. INCREASED URINARY OUTPUT WITH IV BUMEX. REMAINS ON ROOM AIR, SATs >90%. INDEPENDENT IN ROOM AND WITH ADLs. CALL LIGHT IN REACH.
--- NOTE | 2024-12-18 18:32 | NUR ---
UPDATE THIS RN NOTIFIED BY DENTAL HYGIENE ADMINISTRATIVE ASSISTANT OF 8 BEAT RUN OF VTACH. PATIENT ASYMPTOMATIC. SECOND RUN OF VTACH THIS AFTERNOON (SEE SHIFT SUMMARY). THIS RN ATTEMPTED TO CONTACT HOSPITALIST WITH UPDATE. TO CONTACT UNIT WHEN AVAILABLE. WILL REPORT TO ONCOMING RN.
--- NOTE | 2024-12-18 18:48 | NUR ---
THIS RN NOTIFIED OF THIRD RUN OF VTACH 13 BEATS. PATIENT REMAINS ASYMPTOMATIC. CONTACTED - RECEIVED ORDER STAT BMP AND MAGNESIUM.
[2024-12-18] MEDS ORDERED: Metoprolol Tartrate 25 MG Tab PO ONE (20:00)
[2024-12-18 20:36] LABS: Bun/Creatinine Ratio 23.8 (12.0-20.0); Calcium, Blood 8.9 mg/dL (8.5-10.1); Creatinine, Blood 1.26 mg/dL (0.60-1.20); Magnesium, Blood 1.8 mg/dL (1.6-2.4); Potassium, Blood 3.9 mmol/L (3.5-5.5)
[2024-12-18] MEDS ORDERED: Magnesium Sulf 2 GM/Water 50ML 50 ML IV STA (20:54)
[2024-12-18] MEDS ORDERED: Sacubitril/Valsartan 97 mg-103 mg Tab PO SCH (21:00)
[2024-12-18] MEDS ORDERED: Potassium Chloride 40 MEQ in NS 250 ML IV ONE (21:00)
[2024-12-18] MEDS ORDERED: Mometasone Furoate Inhaler 220 mcg 14 ACT INH SCH (21:00)
[2024-12-18] MEDS ORDERED: NS 250 ML IV PRN (21:10)
--- NOTE | 2024-12-18 22:14 | NUR ---
TELEMETRY AT 2204 TELE MONITOR NOTIFIED THIS NURSE OF 12B RUN V. TACH, THEN PT RETURNED V. PACED 87. VSS. DENIES CP OR DYSPNEA. CURRENTLY RECIEVING IV 2GM MAG & [address] BELLA & NO NEW ORDERS RECIEVED AT THIS TIME.;
[2024-12-19] VITALS (7 sets, daily range): BP systolic 81–93; BP diastolic 60–68
[2024-12-19 04:18] LABS: BASOPHILS ABSOLUTE AUTO 0.04 K/mm3 (0.00-0.23); BASOPHILS PERCENT AUTO 1 % (0-2); EOSINOPHILS ABSOLUTE AUTO 0.39 K/mm3 (0.00-0.68); EOSINOPHILS PERCENT AUTO 5 % (0-6); Hematocrit 40.9 % (37.0-53.0); Hemoglobin 13.8 g/dL (13.5-17.5); IMMATURE GRAN ABSOLUTE AUTO 0.02 K/mm3 (0.00-0.10); IMMATURE GRAN PERCENT AUTO 0 % (0-1); LYMPHOCYTES ABSOLUTE AUTO 1.95 K/mm3 (0.84-5.20); LYMPHOCYTES PERCENT AUTO 24 % (21-46); MONOCYTES ABSOLUTE AUTO 0.76 K/mm3 (0.16-1.47); MONOCYTES PERCENT AUTO 10 % (4-13); Mean Corpuscular HGB 30.7 pg (26.0-34.0); Mean Corpuscular HGB Conc 33.7 g/dL (31.5-36.5); Mean Corpuscular Volume 91 fL (80-100); Mean Platelet Volume 11.8 fL (9.1-12.4); NEUTROPHILS ABSOLUTE AUTO 4.85 K/mm3 (1.96-9.15); NEUTROPHILS PERCENT AUTO 61 % (41-73); Platelet Count 206 K/mm3 (150-400); RDW Coefficient Variation 15.7 % (11.7-14.2); RDW Standard Deviation 51.2 fL (35.1-46.3); White Blood Cell Count 8.01 K/mm3 (4.00-11.30)
[2024-12-19 04:37] LABS: Bun/Creatinine Ratio 25.4 (12.0-20.0); Calcium, Blood 8.6 mg/dL (8.5-10.1); Creatinine, Blood 1.22 mg/dL (0.60-1.20); Magnesium, Blood 2.4 mg/dL (1.6-2.4); Potassium, Blood 4.5 mmol/L (3.5-5.5)
--- NOTE | 2024-12-19 05:32 | NUR ---
SHIFT SUMMARY AOX4. VERY [place]. ADMITTED FOR CHF EX. HAD 1 RUN V. TACH READ PREVIOUS NOTE. OTHERWISE HAS BEEN V. PACED HR 93. DENIES CP, PRESSURE OR DYSPNEA. SPO2 >90% ON RA, E/U RESP, DIM CRACKLES IN BASES. TRACE EDEMA TO BLE. IV K & MAG REPLACED LAST NIGHT. OT DOSE METOPROLOL ORDERED @HS. THIS AM BP SOFT 81-89 SYSTOLIC W/MAP OF 74, PT ASYMPTOMATIC. INFORMED BELLA & NO FURTHER ORDERS @THIS TIME. CALL LIGHT IN REACH.
[2024-12-19] MEDS ORDERED: Bumetanide 1 MG Tab PO SCH (09:00)
[2024-12-19] MEDS ORDERED: Metolazone 5 MG Tab PO SCH (09:00)
[2024-12-19] MEDS ORDERED: Enoxaparin 40 MG/0.4 ML SYR SC SCH (09:00)
--- NOTE | 2024-12-19 12:15 | NUR ---
DISCHARGE NOTE PATIENT DCd OFF UNIT AT APPROX 1210. WRITTEN AND VERBAL EDUCATION PROVIDED - PATIENT STATES UNDERSTANDING. IVs REMOVED. TELEMETRY REMOVED. PERSONAL BELONGINGS WITH PATIENT.
== END 2024-12-19 12:15 | disposition home or self-care (01) ==
LOC: ER 23:23 → ERHOLD 23:24 → ER 23:24 → SURS 23:24 → ERHOLD 12-18 09:50 → SURS 12-18 09:50
PROVIDERS: Emergency Medicine; Internal Medicine; ADMIT Internal Medicine
DX: I50.23 Acute on chronic systolic (congestive) heart failure (principal); I25.10 Atherosclerotic heart disease of native coronary artery without angina pectoris; E03.9 Hypothyroidism, unspecified; J45.909 Unspecified asthma, uncomplicated; G89.29 Other chronic pain; K21.9 Gastro-esophageal reflux disease without esophagitis; N17.9 Acute kidney failure, unspecified; Z79.890 Hormone replacement therapy; Z79.899 Other long term (current) drug therapy; Z88.0 Allergy status to penicillin; Z88.2 Allergy status to sulfonamides; Z88.5 Allergy status to narcotic agent; Z88.6 Allergy status to analgesic agent; Z91.038 Other insect allergy status; Z91.018 Allergy to other foods; Z95.0 Presence of cardiac pacemaker
CPT/HCPCS: 36415; 71045; 76770; 80048; 80053; 83735; 83880; 84484; 85025; 93005; 93010; 94640; 94664; 94760; 96365; 96372; 96374; 96375; 96376; 99285-25; A9270; G0378; J1650; J3475; J3480; J7050

== ENCOUNTER 2025-06-15 08:30 | Day surgery (SDC) | payer OTHER ==
[~2025-06-15] VITALS: Ht 175.3 cm; Wt 105.4 kg
[~2025-06-15 08:30] MED LIST changes: +ACET325 PO; +ALLERGY NASAL17 ML; +ALLO300 PO; +Balanced Salt Epinephrine Irrigation Solution 500 mL IR SCH; +Cyclobenzaprine5 MG PO; +ENTRESTO 97 MG1 EACH PO; +ERYT.5TO BOTHEYES; +LEVSOD112 PO; +Moxifloxacin HCL 0.5 MG/0.1 ML 0.4MLSYR LEFTEYE SCH; +NS 500 ML IV ONE; +PHENYLEPHRINE\\TROPICAMIDE\\TETRACAINE OPHTHALMIC DILATING SOLN LEFTEYE PRN; +Povidone-Iodine 450 DROP/30 ML Solution LEFTEYE SCH; +Povidone-Iodine 450 DROP/30 ML Solution ONE; +Tetracaine HCl/Pf 0.5% Opth Soln 4 ml ONE; +Vitamin D1000 UNI1 PO
[2025-06-15] MEDS ORDERED: LEVSOD100 PO (09:04)
[2025-06-15] MEDS ORDERED: TIZA4 PO (09:05)
[2025-06-15] MEDS ORDERED: NS 500 ML IV ONE (09:08)
[2025-06-15] MEDS ORDERED: FentaNYL Citrate 50 MCG/ML 2 ML Injection ONE (09:28)
[2025-06-15] MEDS ORDERED: Tetracaine HCl 0.5% Opth Soln 15 ml LEFTEYE ONE (09:31)
[2025-06-15 10:01] VITALS: BP 127/77
== END 2025-06-15 10:12 | disposition home or self-care (01) ==
LOC: ORSCSDS 08:30
PROVIDERS: Student in an Organized Health Care Education/Training Program
PROC: 08RK3JZ Replacement of Left Lens with Synthetic Substitute, Percutaneous Approach (ICD-10-PCS; principal; 2025-06-15 10:00)
DX: H25.812 Combined forms of age-related cataract, left eye (principal); Z96.1 Presence of intraocular lens; I12.9 Hypertensive chronic kidney disease with stage 1 through stage 4 chronic kidney disease, or unspecified chronic kidney disease; N18.9 Chronic kidney disease, unspecified; J45.909 Unspecified asthma, uncomplicated; I50.9 Heart failure, unspecified; I25.10 Atherosclerotic heart disease of native coronary artery without angina pectoris; E78.5 Hyperlipidemia, unspecified; E03.9 Hypothyroidism, unspecified; F32.A Depression, unspecified; J44.9 Chronic obstructive pulmonary disease, unspecified; E66.9 Obesity, unspecified; Z68.34 Body mass index [BMI] 34.0-34.9, adult; Z79.82 Long term (current) use of aspirin; Z79.899 Other long term (current) drug therapy; Z87.891 Personal history of nicotine dependence
CPT/HCPCS: J3010; J7040; V2632